=== PATIENT | male | born 1940 | race Caucasian/White ===

== ENCOUNTER 2024-05-22 11:39 | Emergency (ER) | payer MEDICARE ==
[~2024-05-22] VITALS: Ht 170.2 cm; Wt 99.8 kg
[2024-05-22 11:43] VITALS: BP 134/106; PULSE 84; RESP 19; TEMP 97.3; O2SAT 21
[2024-05-22 12:02] VITALS: BP 134/106; PULSE 78; O2SAT 95
[2024-05-22 12:03] LABS: BASOPHILS # (AUTO) 0.1 K/uL (0.00-0.22); BASOPHILS % (AUTO) 0.7 % (0.0-2.0); EOSINOPHILS # (AUTO) 0.1 K/uL (0-0.4); EOSINOPHILS % (AUTO) 0.7 % (0.0-4.0); HEMATOCRIT 40.3 % (36-52); HEMOGLOBIN 13.1 g/dL (12.0-18.0); LYMPHOCYTES # (AUTO) 1.1 K/uL (2.0-11.5); LYMPHOCYTES % (AUTO) 14.5 % (20.5-51.1); MEAN CORPUSCULAR HEMOGLOBIN 29 pg (27-31); MEAN CORPUSCULAR HGB CONC 32 g/dL (33-37); MEAN CORPUSCULAR VOLUME 89.5 fL (80-94); MONOCYTES # (AUTO) 0.6 K/uL (0.8-1.0); MONOCYTES % (AUTO) 7.7 % (1.7-9.3); NEUTROPHILS # (AUTO) 5.9 K/uL (1.8-7.7); NEUTROPHILS % (AUTO) 76.4 % (42.2-75.2); PLATELET COUNT (AUTO) 183 K/uL (140-450); RED BLOOD CELL COUNT(AUTO) 4.51 MIL/uL (4.20-6.10); WHITE BLOOD COUNT (AUTO) 7.7 K/uL (4.8-10.8)
[2024-05-22] MEDS: methylPREDNISolone SS 125 MG/2 ML VIAL IVP ONE (12:09)
[2024-05-22] MEDS: MAG SULF 2000 MG/WATER PREMIX 50 ML IV ONE (12:20)
[2024-05-22 12:25] LABS: ANION GAP 4.7 (8-16); CALCIUM 9.3 mg/dL (8.5-10.1); CHLORIDE 96 mmol/L (98-107); CREATININE 0.9 mg/dL (0.6-1.3); GLUCOSE 142 mg/dL (74-106); POTASSIUM 4.7 mmol/L (3.5-5.1); SODIUM SERUM 140 mmol/L (136-145); UREA NITROGEN, BLOOD 26 mg/dL (7-18)
[2024-05-22 12:36] LABS: ALANINE AMINOTRANSFERASE 31 U/L (12-78); ALKALINE PHOSPHATASE 78 U/L (50-136); ASPARTATE AMINOTRANSFERASE 33 U/L (15-37); BILIRUBIN,DIRECT 0.3 mg/dL (0.0-0.3); TOTAL BILIRUBIN 1.4 mg/dL (0.0-1.0); TOTAL PROTEIN, SERUM 6.8 g/dL (6.4-8.2)
[2024-05-22 12:40] LABS: INR 8.93 (0.8-1.2); PROTHROMBIN TIME 82.8 secs (10.8-13.4)
[2024-05-22 12:42] LABS: LACTIC ACID 1.8 mmol/L (0.4-2.0)
[2024-05-22] MEDS ORDERED: ALBUTEROL SULFATE/IPRATROPIU 3 ML SOL IH ONE (13:06)
[2024-05-22] MEDS: ALBUTEROL SULFATE/IPRATROPIU 3 ML SOL IH ONE (13:08)
[2024-05-22 13:09] VITALS: PULSE 63; RESP 18; O2SAT 98
[2024-05-22 13:15] VITALS: PULSE 63; O2SAT 98
[2024-05-22 13:33] LABS: BLOOD GAS PH 7.466 (7.35-7.45)
[2024-05-22 13:34] LABS: BLOOD GAS BASE EXCESS 19.4 mmol/L (-2.0-2.0); BLOOD GAS HCO3 46.8 mmol/L (22-26); BLOOD GAS PCO2 66.4 mmHg (35-45)
[2024-05-22 13:37] LABS: BLOOD GAS O2 SAT% 98.7 % (92.0-98.5)
[2024-05-22] MEDS: FUROSEMIDE 40 MG/4 ML VIAL IVP ONE (14:10)
[2024-05-22 15:52] VITALS: PULSE 68; O2SAT 96
[2024-05-22 18:53] VITALS: BP 111/58; PULSE 83; RESP 27; TEMP 97.3; O2SAT 97
== END 2024-05-22 18:53 | disposition short-term general hospital (02) ==
LOC: MED 11:39
DX: I50.9 Heart failure, unspecified (principal); J96.91 Respiratory failure, unspecified with hypoxia; Z20.822 Contact with and (suspected) exposure to COVID-19; J44.9 Chronic obstructive pulmonary disease, unspecified; Z86.711 Personal history of pulmonary embolism; Z79.01 Long term (current) use of anticoagulants
CPT/HCPCS: 36415; 36600; 71045; 80048; 80076; 82803; 83605; 83880; 84484; 85025; 85610; 85730; 87040; 87426; 93005; 94640; 94660; 96365; 96366; 96375; 99291; J1940; J2919; J3475